=== PATIENT | male | born 1985 | race Caucasian/White ===

== ENCOUNTER 2018-04-03 12:01 | Day surgery (SDC) | payer BC, SELFPAY ==
[2018-04-03 12:13] VITALS: BP 131/84; PULSE 96; RESP 18; TEMP 37.1; O2SAT 96
--- NOTE | 2018-04-03 13:08 | PDOC.DSDIS_ITS ---
Discharge Plan Disposition Patient Disposition: HOME Condition: Good Discharge Details Reason For Visit: NEOPLASM OF UNCERTAIN BEHAVIOR Attending Provider: Willi Womack Primary Care Provider: Wei Walker Discharge Instructions Instructions: Care For Your Absorbable Stitches (DC) Referrals: Wilil Womack DO [ [facility] STAFF PHYSICIAN] - 04/03/18 10:00 pm (Follow up after excision of neoplasm of the face) Activity:: Activity as Tolerated Remove Dressings/Wound Care:: 24 hours Shower/Bathe:: 24 hours Diet:: As Tolerated Discharge Orders Discharge Orders: Discharge Order (Routine); Ordered 04/03/18 Ordered By: Willi Womack DS: Diagnosis Discharge Diagnosis (1) Neoplasm of uncertain behavior of skin of face: Status: Acute
--- NOTE | 2018-04-03 13:11 | ROE_ITS ---
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 This has been present for several years. It was removed prior by has returned over about a years time. Interferes with ADLs. He would like the lesion definitively removed. Findings: Neoplasm excised from the right congregation, wound measured 1.5 cm x 0.6 cm Procedure Description: Patient was brought to the operating room positioned supine. An appropriate timeout was taken reviewing the patient's identification, allergies, medications , procedure, and site. The right congregation was prepped with Betadine and block draped in standard sterile fashion. Local was infiltrated around the lesion. An ellipse was marked around the lesion measuring 1.5 cm x 0.6 cm. The skin was then incised using a 15 blade scalpel down to the subcutaneous tissue, and the base was sharply excised. I performed some sharp dissection to remove the cyst wall that remained in the base of the wound. Hemostasis was then obtained with I cautery. The wound was then closed in layers with the subcutaneous tissue approximated using 3-0 Vicryl suture, and the skin closed in a running subcuticular fashion with 4-0 Vicryl suture. The specimen was marked with the posterior margin having a single tail silk suture, and the cephalad margin having a double tail silk suture. There are no complications during the case the patient tolerated procedure very well. All counts reported as correct x2.
--- NOTE | 2018-04-03 13:28 | SKI_PTH ---
PATIENT: Juan Downs LOC: [facility] U#:[id number] AGE/SX: 32/M ROOM: RE04/03/[address]: Willi Womack DO : 1985 BED: DIS: 04/03/2018 SPEC #: [id number] RECD: 04/03/18 17:53 STATUS: KYE REQ #: [id number] COCO: 04/03/18 13:[address]: Willi Womack DEPT: Surgical Specimen RECD BY: Kimberlyn Crowley ENTERED: 04/03/18 17:54 SP TYPE: SKI OTHR DR: Wei Walker Tissues: 1 - SKIN BIOPSY(SHAVE/PUNCH) Procedures: SKIN LEVEL 4 Comments: [id number]
== END 2018-04-03 14:10 | disposition home or self-care (01) ==
PROVIDERS: PCP Internal Medicine; Visit Provider Surgery
PROC: 0HB1XZZ Excision of Face Skin, External Approach (ICD-10-PCS; CPT 11442; principal; 2018-04-03 12:45)
DX: D23.39 Other benign neoplasm of skin of other parts of face (principal)
CPT/HCPCS: 11442; 12051; 88305

== ENCOUNTER 2020-06-22 22:56 | Outpatient (REF) | payer OTHER, SELFPAY ==
[2020-06-22 21:18] LABS: Calculated LDL 111 mg/dL (<100); Cholesterol 181 mg/dL (<200); HDL Cholesterol 43 mg/dL (40-60); Triglyceride 136 mg/dL (<150)
== END 2020-06-22 23:16 ==
LOC: NCHCN 22:56
PROVIDERS: PCP Internal Medicine; Visit Provider Internal Medicine
DX: Z00.00 Encounter for general adult medical examination without abnormal findings (principal); E66.9 Obesity, unspecified; Z13.220 Encounter for screening for lipoid disorders
CPT/HCPCS: 80061

== ENCOUNTER 2022-01-31 08:54 | Day surgery (SDC) | payer OTHER, SELFPAY ==
--- NOTE | 2022-01-30 20:47 | W.PM.HP.N ---
Assessment and Plan Assessment and plan (1) Rectal bleed: Status: Acute Assessment and plan: Patient presents today for further evaluation of rectal bleeding that has been occurring in bouts, he states his symptoms have subsided since his visit in the clinic. He denies a family history of colon cancer. Given the chronicity and severity of the patient's symptoms patient is eager to proceed with Colonoscopy. -Discussed colonoscopy bowel prep as well as the procedure. Discussed possible complications of the procedure to include bleeding, pain, perforation, missed small lesion/polyp, sore throat, aspiration and adverse reaction to the medications. Questions were answered to patient?s satisfaction. No guarantees were implied or given. Colonoscopy and possible hemorrhoid today. See HPI. History of Present Illness Narrative: Patient is here today for colonoscopy. He completed the bowel prep. He did not have any bleeding during the prep. The output today is greenish-yellow color. He is having no chest pain, no shortness of breath, no productive cough, no fever or chills, we discussed what he could expect during the procedure post procedurally recovery time and risks including but not limited to: Bleeding, infection, perforation, aspiration, and complications from anesthesia. If we do find internal hemorrhoids he would like to have a hemorrhoid banding. He will have some discomfort for 3 to 5 days afterwards and you should use warm tub soaks and Tylenol. All questions are answered and patient is stable for proposed procedure today Consult 12/16: Patient denies any changes since he was last seen in the office in his health history. He states that the rectal bleeding has subsided and he has not had any bleeding, even despite the bowel prep. 36-year-old male with a history of rectal bleeding presents for further evaluation.? Patient states that he has been experiencing on and off flareups for several years.? Patient states that he has the sensation of internal discomfort.? Patient describes having constipation followed by diarrhea and following these bowel movements feels like something is bulging out and sitting increases this pain.? The patient denies any family history of inflammatory bowel disease or colon cancer.? He is attempted [id number] medications to include hemorrhoidal pills and creams as well as medicated wipes with out any improvement in his symptoms. Denies chest pain, palpitations, dyspnea or dyspnea with exertion. Denies personal or family history of adverse reactions to anesthesia. Denies any history of HI, stroke, seizures, bleeding or clotting disorders.? He reports having implanted metal in his left fifth finger. Denies any history of chemotherapy or radiation. Review of Systems All systems reviewed & are unremarkable except as noted in HPI and below Cardiovascular Cardiovascular: Denies chest pain, Denies palpitations and Denies dyspnea Respiratory Respiratory: Denies chest congestion, Denies cough, Denies dyspnea and Denies wheezing Gastrointestinal Gastrointestinal: Denies bloating, Denies hematochezia, Denies change in bowel habits, Denies heartburn, Denies nausea and Denies vomiting Endocrine Endocrine: Denies palpitations Allergic/Immunologic Allergic/Immunologic: Denies wheezing PFSH All Active Problems Rectal bleed (Acute) Medical History Mass of soft tissue of face Neoplasm of uncertain behavior of skin of face Sebaceous cyst Tinea cruris Tinea pedis Surgical History H/O local excision of skin lesion (04/03/18) Right anabaptism, benign, Dr Womack Social History Smoking/Tobacco Use Status: Current-Occasional Smoking risk assessment performed?: Yes Alcohol Intake: current Alcohol Intake frequency: a few times a week Alcohol type: beer Drug use: Never Substance use type: does not use Do you feel safe at home: Yes Do you feel safe in your relationship?: Yes Meds Allergies and Home Medications Allergies Allergy/AdvReac Type Severity Reaction Status Date / Time No Known Allergies Allergy Verified 01/31/22 08:46 Home Medications Medication Instructions Recorded Confirmed Type bisacodyl 5 mg tablet,delayed 5 mg PO ONCE #4 tabs 12/15/21 01/31/22 Rx release (Dulcolax (bisacodyl)) polyethylene glycol 3350 17 17 g PO ONCE #238 grams 12/15/21 01/31/22 Rx gram/dose oral powder Exam Narrative Exam Narrative: PHYSICAL EXAM GENERAL APPEARANCE: Alert, healthy appearance, oriented, in no acute distress SKIN: No rashes.? No breakdown HYDRATION: Well hydrated HEAD, EYES, EARS, NECK, THROAT: Head is normocephalic, pupils equal, round, reactive to light and accommodation, ocular movement intact, sclera clear and no jaundice. ?Dentition intact. No sore throat.? No jaw pain. No thrush NECK: Supple, Trachea midline. No JVD. LUNGS: normal respiration/nl chest excursion. ?Clear to auscultation B/l no R/R/W ?HEART: Regular rate and rhythm, EXTREMITY: No edema or cyanosis? no leg pain, redness, swelling.? No IV infiltration ABDOMEN: non tender to palpation, no masses or distention, no hernias. Normal bowel sounds NEURO: no focal neuro deficits. Const General: cooperative, healthy appearing and comfortable Orientation: alert and oriented x3 Resp Effort & Inspection: normal respiratory effort, no audible wheezes and no cough Auscultation: clear to auscultation bilaterally GI Inspection: normal to inspection Palpation: soft, no guarding and nontender Auscultation: normal bowel sounds Results Labs Result diagrams: 01/31/22 12:45
[2022-01-31 09:00] VITALS: BP 118/87; PULSE 76; RESP 18; TEMP 36.5; O2SAT 96
[2022-01-31] MEDS: Lactated Ringers 1,000 ML 80 ML IV (09:26)
--- NOTE | 2022-01-31 10:19 | ANES.PREOP_ITS ---
General Info Date of Service Date Performed: 01/31/22 Height: 5 ft 10 in Weight: 115.1 kg Body Mass Index (BMI): 36.3 Surgical Procedure: Operation Date: 01/31/22 10:40 Proposed Procedure Side Surgeon p Colonoscopy Rachel Loera DO s Possible Hemorrhoid Banding Rachel Loera DO Meds Allergies and Home Medications Allergies Allergy/AdvReac Type Severity Reaction Status Date / Time No Known Allergies Allergy Verified 01/31/22 08:46 Home Medication Medication Instructions Recorded bisacodyl 5 mg tablet,delayed 5 mg PO ONCE #4 tabs 12/15/21 release (Dulcolax (bisacodyl)) polyethylene glycol 3350 17 17 g PO ONCE #238 grams 12/15/21 gram/dose oral powder Current Visit Medications: Current Medications Generic Name Dose Route Start Last Admin Trade Name Freq PRN Reason Stop Dose Admin Hyoscyamine Sulfate 0.125 mg 01/30/22 21:59 Hyoscyamine 0.125 Mg Sl/Oral/Chew SL DIRECTED PRN Ringer's Solution 1,000 mls @ 80 mls/hr 01/31/22 06:00 01/31/22 09:26 IV 03/01/22 23:59 80 mls/hr INFUSION JOSHUA Administration IV Miscellaneous Supplies 1 each 01/31/22 06:00 Iv Access IV 03/01/22 23:59 DIRECTED JOSHUA Ondansetron HCl 4 mg 01/30/22 21:59 Ondansetron 4 Mg/2 Ml Vial IVP Q4H PRN PRN Nausea / Vomiting Sodium Chloride 0 ml 01/31/22 06:00 Normal Saline Flush 10 Ml Syr IV 03/01/22 23:59 PRN PRN Sodium Chloride 0 ml 01/31/22 06:00 Normal Saline 10 Ml Vial IJ 03/01/22 23:59 DIRECTED PRN Sterile Water 0 ml 01/31/22 06:00 Water,Injection,Sterile 10 Ml Vial IJ 03/01/22 23:59 DIRECTED PRN PFSH Active Problems Active Problems: Problem Status Onset Code Rectal bleed K62.5 Medical History Medical History Mass of soft tissue of face Neoplasm of uncertain behavior of skin of face Sebaceous cyst Tinea cruris Tinea pedis Surgical History Surgical History H/O local excision of skin lesion (04/03/18) Right rastafari, benign, Dr Womack Tobacco Smoking/Tobacco Use Status: Current-Occasional Alcohol Alcohol Intake: current Alcohol intake frequency: a few times a week Alcohol type: beer Substance Use Substance use: Never Substance use type: does not use Vital Signs and Lab Results Vital Signs Most Recent Vital Signs in EMR: Most Recent Vital Signs Temp Pulse Resp BP Pulse Ox 36.5 C 76 18 118/87 96 01/31/22 09:00 01/31/22 09:00 01/31/22 09:00 01/31/22 09:00 01/31/22 09:00 Lab Results Result Diagrams: 01/31/22 10:00 Blood Type / Crossmatch: No Data to Display Complete Blood Count: White Blood Count Pending 01/31/22 10:00 Red Blood Count Pending 01/31/22 10:00 Hemoglobin Pending 01/31/22 10:00 Hematocrit Pending 01/31/22 10:00 Platelet Count Pending 01/31/22 10:00 Complete Metabolic Panel: C-Reactive Protein Pending 01/31/22 10:00 Liver Function Panel: No Data to Display Coagulation Panel: No Data to Display Cardiac Panel: No Data to Display Arterial Blood Gas: No Data to Display Venous Blood Gas: No Data to Display Pancreas Panel: No Data to Display Thyroid Panel: No Data to Display Infectious Disease: No Data to Display Blood Cultures: No Data to Display Toxicology Panel: No Data to Display Anesthesia Assessment and Plan Anesthesia History Personal History: No History of Anesthesia Complications Family History: No Family History of Anesthesia Complications Exercise Tolerance Exercise Tolerance: Metabolic Equivalents>4 Pertinent Negatives Pertinent Negatives: No Symptoms of GERD, No Major Cardiovascular Symptoms or Complaints and No Major Pulmonary Symptoms or Complaints Cardiac & Pulmonary Exam Cardiac Exam: Normal S1/S2 Heart Sounds Pulmonary Exam: Clear Bilateral Breath Sounds Implantable Cardiac Device Does patient have a Pacemaker or an ICD?: No Airway Exam Known Difficult Airway: No Mallampati Class: 2 Mouth Opening: Normal (> 3cm) Thyromental Distance: Greater than 3 cm Neck Range of Motion: Full ROM Neck Circumference: Normal Teeth Condition: Normal Dentition ASA Classification ASA Score: ASA 2 Emergency Case?: No NPO Status NPO Status: NPO Clears >2 hours, Solids >8 hours Anesthesia Plan Resuscitation Status: Full Code Anesthesia Technique: General Anesthesia Airway Planned: Natural Airway Monitors Used: Standard Monitors
[2022-01-31 10:21] VITALS: BMI 36.3
[2022-01-31 12:32] VITALS: BP 116/87; PULSE 81; RESP 16; TEMP 36.5; O2SAT 92
--- NOTE | 2022-01-31 12:40 | W.ANESPOSTOP ---
Postoperative Evaluation Date, Time and Location Date Performed: 01/31/22 Time Performed: 12:40 Patient Location: Day Surgery Unit Vital Signs Most Recent Imported Vital Signs: Most Recent Vital Signs Temp Pulse Resp BP Pulse Ox 36.5 C 76 18 118/87 96 01/31/22 09:00 01/31/22 09:00 01/31/22 09:00 01/31/22 09:00 01/31/22 09:00 Most Recent Manually Entered Vital Signs: Adult Blood Pressure: 140/76 Heart Rate: 75 Respirations: 12 Oxygen Saturation (%): 98 Temperature (C): 36.3 C Pain Score (0-10 Scale): 0 Assessment Mental Status: Awake (Alert & Oriented to Patient Baseline) Airway and Respiratory Function: Patent airway with normal (patient baseline) respiratory exam Cardiovascular Function: Hemodynamically Stable Hydration Status: Adequately Hydrated Nausea & Vomiting: No Nausea or Vomiting Pain: Pt. Denies Any Pain Peripheral Nerve Block: Patient did not receive a nerve block
[2022-01-31 12:42] VITALS: BP 140/76; PULSE 75; RESP 12; TEMPC 36.3; O2SAT 98
[2022-01-31 12:53] LABS: Abs Immature Grans 0.03 10^3/uL (0.0-0.06); Absolute Basophil Count 0.02 10^3/uL (0.0-0.2); Absolute Eosinophil Count 0.11 10^3/uL (0.0-0.7); Absolute Lymphocyte Count 1.61 10^3/uL (1.2-3.4); Absolute Monocyte Count 0.66 10^3/uL (0.1-0.8); Absolute Neutrophil Count 3.97 10^3/uL (1.2-6.7); Basophils % 0.3; Eosinophils % 1.7; HCT 44.9 % (40.0-50.0); HGB 15.2 g/dL (13.5-17.5); Immature Grans % 0.5; Lymphocytes % 25.2; MCH 31.1 pg (27.0-33.0); MCHC 33.9 % (32.0-36.0); MCV 92 fL (80-95); MPV 9.3 fL (8.0-11.0); Monocytes % 10.3; Platelet Count 226 10^3/uL (130-400); RBC 4.89 10^6/uL (4.36-5.78); RDW 12.7 % (11.8-14.1); RDW-SD 42.8 fL
--- NOTE | 2022-01-31 12:56 | W.ANESPOSTOP ---
Postoperative Evaluation Date, Time and Location Date Performed: 01/31/22 Time Performed: 12:35 Patient Location: Day Surgery Unit Vital Signs Most Recent Imported Vital Signs: Most Recent Vital Signs Temp Pulse Resp BP Pulse Ox 36.5 C 81 16 116/87 92 01/31/22 12:32 01/31/22 12:32 01/31/22 12:32 01/31/22 12:32 01/31/22 12:32 Most Recent Vital Signs Temp Pulse Resp BP Pulse Ox 36.5 C 76 18 118/87 96 01/31/22 09:00 01/31/22 09:00 01/31/22 09:00 01/31/22 09:00 01/31/22 09:00 Pain Score Most Recent Pain Score: Most Recent Pain Score Pain Level 0 01/31/22 12:32 Assessment Mental Status: Awake (Alert & Oriented to Patient Baseline) Airway and Respiratory Function: Patent airway with normal (patient baseline) respiratory exam Cardiovascular Function: Hemodynamically Stable Hydration Status: Adequately Hydrated Nausea & Vomiting: No Nausea or Vomiting Pain: Pt. Denies Any Pain Peripheral Nerve Block: Patient did not receive a nerve block
[2022-01-31 13:10] VITALS: BP 124/77; PULSE 70; RESP 16; TEMP 36.5; O2SAT 96
[2022-01-31 13:12] LABS: C-Reactive Protein 0.48 mg/dL (0.0-0.3)
[2022-01-31 13:15] LABS: Iron 72 ug/dL (65-175); Total Iron Binding Capacity 334 ug/dL (250-450); Transferrin Sat 22 % (20-55)
[2022-01-31 13:37] LABS: Ferritin 323 ng/mL (26-388)
--- NOTE | 2022-02-05 23:14 | W.COLOREPORT ---
Colonoscopy Report Date of procedure: 01/31/22 Pre-op diagnosis general: Rectal bleeding Post-op diagnosis procedure note: other (External hemorrhoids) Surgeon: Rachel Loera Anesthesia Type: General:No Airway Estimated blood loss (mL): 0 Pathology: none sent Complications: None Disposition: same day Prep: Miralax/Dulcolax Retraction Time: 7 Procedure Description: After informed consent was obtained the patient was taken to the procedure room and placed in a left decubitous position. Monitors were applied and a time out was done. The patients name, date of , procedure, allergies to medications and metal in their body was reviewed. The patient was then sedated. Once sedated and comfortable a rectal exam was done. External exam shows minimal external hemorrhoids. internal exam revealed a normal sphincter tone and no palpable masses. The prostate nl The scope was then introduced and retrofelexed. No internal hemorrhoids were identified. The scope was then advanced to the cecum without difficulty. The TI and appendiceal orifice were identified. The prep was BB PS 2 in the cecum and right colon and be BPS 3 in all other segments for a total of 8 the scope was then slowly retracted over 7 minutes back into the rectum. There are no polyps, AVMs, or diverticula visualized.. The scope was removed and the patient was woken up and taken back to Same day surgery in stable condition. The patient tolerated the procedure well and there were no immediate complications. Follow up: The patient should follow up in 10 years unless they develop changes in bowel habits or other new gastrointestinal complaints.
== END 2022-01-31 13:20 | disposition home or self-care (01) ==
PROVIDERS: PCP Internal Medicine; Visit Provider Surgery
PROC: 0DJD8ZZ Inspection of Lower Intestinal Tract, Via Natural or Artificial Opening Endoscopic (ICD-10-PCS; CPT 45378; principal; 2022-01-31 10:30)
DX: K62.5 Hemorrhage of anus and rectum (principal)
CPT/HCPCS: 45378; 36415; 82728; 83540; 83550; 85025; 86140

== ENCOUNTER 2022-07-16 17:25 | Emergency (ER) | payer OTHER, SELFPAY ==
[2022-07-16 17:31] VITALS: BP 129/85; PULSE 72; RESP 16; TEMP 36.6; O2SAT 98
--- NOTE | 2022-07-16 18:41 | ED.GENADUL_ITS ---
Discharge Plan Disposition Patient Disposition: Home Condition: Improving Discharge Details Clinical Impression: Finger laceration Primary Care Provider: Wei Walker ED Provider: Kai Hinson Home Meds and New Rx's Prescriptions: No Action No Known Home Meds Discharge Instructions Instructions: Finger Laceration (ED) Additional Instructions: Watch for any signs of infection and return immediately to the emergency department if these occur. Otherwise keep dressing in place for the next 24-48 hours and then keep wound clean and dry. Return to the emergency department 12- 14 days for suture removal. Discharge Data Discharge Date/Time-TO BE ENTERED AT DEPARTURE: 07/16/22 18:57 Medical Decision Making 3.5 cm laceration to left index finger. Two-point discrimination and full movement is intact, no other injury or trauma. Please see procedure note for wound repair. Patient had #5 4-0 Prolene sutures placed. After discussion of diagnosis and plan of care patient has no further needs, questions, or concerns and states clear understanding to return to the emergency department for any worsening symptoms. This documentation was generated using 3sunation system, please disregard any oddities of phrase or misspellings. HPI General Mode of arrival: ambulatory . Date/Time Provider Initiated Documentation: 07/16/22 18:41 . Limitations to Documentation: no limitations . Information obtained by: patient and RN notes reviewed . History of Present Illness 37 year old M presents to the emergency department with the chief complaint of Left index finger laceration, described as mild and moderate, with intensity rated at 3. Quality is described as sharp, and is localized to the left and upper extremity. Patient reports no radiation. Patient started experiencing this hour(s) (1) and it has been constant. No relieving factors improve symptom(s), No exacerbating factors reported . Patient notes no other symptoms.. Patient did receive the following treatments prior to arrival, none Related Data Home Medications Medication Instructions Recorded Confirmed Unknown [No Known Home Meds] 07/16/22 07/16/22 Allergies Allergy/AdvReac Type Severity Reaction Status Date / Time No Known Allergies Allergy Verified 07/16/22 17:34 General Stated Complaint: Laceration RANDI: 4 Review of Systems Narrative: 6 systems reviewed and unremarkable except what is marked below. Musculoskeletal Musculoskeletal: Denies limited range of motion, Denies numbness and Denies tingling Integumentary/Breasts Skin/Breast: Reports as per HPI Neurologic Neurologic: Denies numbness and Denies tingling PFSH All Active Problems Finger laceration (Acute) Rectal bleed (Acute) Medical History Mass of soft tissue of face Neoplasm of uncertain behavior of skin of face Sebaceous cyst Tinea cruris Tinea pedis Surgical History H/O local excision of skin lesion (04/03/18) Right sikh, benign, Dr Womack Social History Smoking/Tobacco Use Status: Current-Occasional Smoking risk assessment performed?: Yes Alcohol Intake: current Alcohol Intake frequency: a few times a week Alcohol type: beer Drug use: Never Substance use type: does not use Do you feel safe at home: Yes Do you feel safe in your relationship?: Yes Exam Const General: cooperative, no acute distress and not ill appearing Orientation: alert, awake and oriented x3 Resp Effort & Inspection: normal respiratory effort, able to speak in complete sentences and no respiratory distress Cardio Rate: regular rate Rhythm: regular rhythm Pulses: normal peripheral pulses Skin General skin exam: no rashes or lesions noted Neuro General: patient alert, patient awake, patient oriented x3, moves all ex tremities and no focal motor deficits Sensory Exam: no sensory deficits noted Extrem General: normal exam except as noted Left upper extremity: hand Details: laceration 2nd digit dorsal aspect proximal Details: linear, involving subcutaneous tissue, with motor nerve function intact and with sensation intact Course Vital Signs Vital signs: Vital Signs Temperature 36.6 C 07/16/22 17:31 Pulse 72 07/16/22 17:31 Respiratory Rate 16 07/16/22 17:31 Blood Pressure 129/85 07/16/22 17:31 Pulse Oximetry 98 07/16/22 17:31 Temperature 36.6 C 07/16/22 17:31 Temperature Source Skin 07/16/22 17:31 Pulse 72 07/16/22 17:31 Respiratory Rate 16 07/16/22 17:31 Respiratory Effort 07/16/22 17:33 Blood Pressure 129/85 07/16/22 17:31 Blood Pressure Position Sitting 07/16/22 17:31 Pulse Oximetry 98 07/16/22 17:31 Oxygen Delivery Method Room Air 07/16/22 17:31 Oxygen Flow Rate 0 07/16/22 17:31 Pain Level 3 07/16/22 17:31 Procedures Laceration Laceration 1: Site: hand Side (If applicable): left Size (cm): 3.5 Description: linear and clean Depth: simple, single layer Local Anesthetic: Lidocaine 1% Amount of anesthesia used (mL): 2 Pre-repair: wound explored, irrigated extensively and deep structures intact Skin layer closed with: other (Prolene) Size (cm): 4-0 Number of sutures: 5 Technique: simple, interrupted
== END 2022-07-16 18:57 | disposition home or self-care (01) ==
PROVIDERS: Emergency Provider Nurse Practitioner Family; PCP Internal Medicine
DX: S61.211A Laceration without foreign body of left index finger without damage to nail, initial encounter (principal); W26.0XXA Contact with knife, initial encounter
CPT/HCPCS: 12002; 90471

== ENCOUNTER 2022-07-29 20:20 | Emergency (ER) | payer OTHER, SELFPAY ==
[2022-07-29 20:23] VITALS: BP 116/86; PULSE 99; RESP 18; TEMP 36.8; O2SAT 97
--- NOTE | 2022-07-29 20:26 | ED.GENADUL_ITS ---
Discharge Plan Disposition Patient Disposition: Home Condition: Stable Discharge Details Clinical Impression: Encounter for removal of sutures, Cellulitis of finger of left hand Primary Care Provider: Wei Walker ED Provider: Debora Deng Home Meds and New Rx's Prescriptions: New cephalexin 500 mg tablet 500 mg PO BID 7 Days Qty: 14 0RF Discharge Instructions Instructions: Cellulitis (ED), Stitches Removal (ED) Additional Instructions: Please start taking the antibiotic as prescribed if the redness, tenderness, drainage gets any worse. May keep it covered with a Band-Aid. No soaking. Allowed to air dry at least 2 hours a day. Keep covered when working. Please take Tylenol or Ibuprofen with food every 4-6 hours as needed for pain and swelling. Follow up with primary care provider in 3-5 days. Return to ED sooner if any worsening or concerns. Increase oral fluids. Referrals: Wei Walker MD [Primary Care Provider] - 5 days Medical Decision Making 37-year-old male presents for suture removal. Patient had 5 simple interrupted sutures placed to the dorsum of his left index finger approximately 13 days ago. He reports no problems at home however there is slight redness to the proximal laceration and he reports some clear drainage today. He does have full range of motion noted. I did instruct staff nurse midwife to take sutures out. I will write him prescription for cephalexin and to begin this if the redness gets any worse. He verbalizes understanding. This text was generated using [employer] dictation system, please disregard any oddities of phrase or misspellings. HPI General Mode of arrival: ambulatory . Date/Time Provider Initiated Documentation: 07/29/22 20:21 . Limitations to Documentation: no limitations . Information obtained by: patient, RN notes reviewed and old records reviewed . HPI Narrative: 37-year-old male presents for suture removal. Patient had 5 simple interrupted sutures placed to the dorsum of his left index finger approximately 13 days ago. He reports no problems at home however there is slight redness to the proximal laceration and he reports some clear drainage today. He does have full range of motion noted. Wound is well approximated. Related Data Home Medications Medication Instructions Recorded Confirmed cephalexin 500 mg tablet 500 mg PO BID 7 days #14 tabs 07/29/22 Previous Rx's Medication Instructions Recorded cephalexin 500 mg tablet 500 mg PO BID 7 days #14 tabs 07/29/22 Allergies Allergy/AdvReac Type Severity Reaction Status Date / Time No Known Allergies Allergy Verified 07/16/22 17:34 General RANDI: 4 Review of Systems Musculoskeletal Musculoskeletal: Reports as per HPI Integumentary/Breasts Skin/Breast: Reports as per HPI and Reports wounds PFSH All Active Problems (Updated 07/29/22 @ 20:33 by Debora Deng NP) Finger laceration (Acute) Encounter for removal of sutures (Acute) Cellulitis of finger of left hand (Acute) Rectal bleed (Acute) Medical History Mass of soft tissue of face Neoplasm of uncertain behavior of skin of face Sebaceous cyst Tinea cruris Tinea pedis Surgical History H/O local excision of skin lesion (04/03/18) Right pentecostal, benign, Dr Womack Social History Smoking/Tobacco Use Status: Current-Occasional Smoking risk assessment performed?: Yes Alcohol Intake: current Alcohol Intake frequency: a few times a week Alcohol type: beer Drug use: Never Substance use type: does not use Do you feel safe at home: Yes Do you feel safe in your relationship?: Yes Exam Extrem Hand/finger images: 1. Sutured laceration with approximately 5 simple interrupted sutures noted. Wound is well approximated. 2. Erythema
== END 2022-07-29 20:41 | disposition home or self-care (01) ==
PROVIDERS: Emergency Provider Registered Nurse Emergency; PCP Internal Medicine
DX: L03.012 Cellulitis of left finger (principal); S61.211D Laceration without foreign body of left index finger without damage to nail, subsequent encounter; X58.XXXD Exposure to other specified factors, subsequent encounter
CPT/HCPCS: 99283

== ENCOUNTER 2023-01-05 01:21 | Outpatient (CLI) | payer OTHER, SELFPAY ==
--- NOTE | 2023-01-05 08:00 | DI.RAD_ITS ---
Exam(s) XR ANKLE RT COMPLETE EXAM: XR ANKLE RT COMPLETE CLINICAL HISTORY: RT ANKLE JOINT PAIN, M25.571. TECHNIQUE: 2D digital imaging was performed. Three views. COMPARISON: No exams were available for comparison FINDINGS: BONES: There is a nondisplaced fracture seen at the base of the 5th metatarsal which appears subacute .. No bony destructive lesion is seen. JOINTS: The ankle mortise is normally aligned. Mild degenerative changes at the talonavicular joint . SOFT TISSUE: Normal. IMPRESSION: Nondisplaced fracture at the base of the 5th metatarsal which appears subacute. DATA REPOSITORY: RADIATION DOSE DELIVERED:
== END 2023-01-05 01:41 ==
LOC: DI 01:21
PROVIDERS: PCP Internal Medicine; Visit Provider Family Medicine
DX: S92.351A Displaced fracture of fifth metatarsal bone, right foot, initial encounter for closed fracture (principal); X58.XXXA Exposure to other specified factors, initial encounter
CPT/HCPCS: 73610